=== PATIENT | female | born 1990 | race Two or more races ===

== ENCOUNTER 2017-01-18 18:01 | Inpatient (IN) | payer OTHER, MEDICAID ==
[~2017-01-18] VITALS: Ht 165.1 cm; Wt 82.2 kg
[2017-01-18] MEDS ORDERED: ACTIVATED CHARCOAL 50 GM/240 ML SOL ONE (18:16)
[2017-01-18] MEDS ORDERED: ACTIVATED CHARCOAL 50 GM/240 ML SOL PO ONE (18:30)
[2017-01-18] MEDS ORDERED: SODIUM CHLORIDE 0.9% 1,000 ML IV ONE (19:00)
[2017-01-18 19:39] LABS: Albumin 3.7 g/dL (3.4-5.0); Anion Gap 11 (5-15); Aspartate Aminotransferase 17 U/L (15-37); BUN/Creatinine Ratio 9.2; Blood Urea Nitrogen 6 mg/dL (7-18); Carbon Dioxide 21 mmol/L (21-32); Chloride 107 mmol/L (98-107); GFR African American 141 mL/min; GFR Non-African American 116 mL/min; Glucose 102 mg/dL (74-106); Potassium 3.6 mmol/L (3.5-5.1); Salicylate < 1.7 mg/dL (2.8-20.0); Sodium 139 mmol/L (136-145)
[2017-01-18 19:40] LABS: Basophils # (auto) 0 uL; Basophils % (auto) 0.5 % (0.0-2.0); Eosinophils # (auto) 0.1 uL; Eosinophils % (auto) 0.9 % (0.0-7.0); Hematocrit 39.9 % (36.0-46.0); Hemoglobin 13.7 g/dL (12.2-16.2); Lymphocytes # (auto) 1.7 uL; Lymphocytes % (auto) 18.6 % (10.0-50.0); Mean Corpuscular Hemoglobin 30.5 pg (28.0-32.0); Mean Corpuscular Hgb Conc. 34.4 g/dL (32.0-36.0); Mean Corpuscular Volume 88.6 fL (80.0-100.0); Mean Platelet Volume 9.4 fL (6.9-10.8); Monocytes # (auto) 0.5 uL; Monocytes % (auto) 5.5 % (0.0-12.0); Neutrophils # (auto) 6.8 uL; Neutrophils % (auto) 74.5 % (37.0-80.0); Platelet Count (auto) 166 10^3/uL (140-450); Red Cell Distribution Width 12.4 % (11.8-14.3); White Blood Cell 9.2 10^3/uL (4.4-10.8)
[2017-01-18 19:41] LABS: Alkaline Phosphatase 49 U/L (45-117); Bilirubin, Total 0.3 mg/dL (0.2-1.0); Total Protein 7.2 g/dL (6.4-8.2)
[2017-01-18] MEDS ORDERED: ONDANSETRON HCL 4 MG/2 ML VIAL ONE (20:21)
[2017-01-18] MEDS ORDERED: ACETYLCYSTEINE 200MG/ML IV SOLN 30ML IV ONE ×2 (20:29→21:09)
[2017-01-18] MEDS ORDERED: ONDANSETRON HCL 4 MG/2 ML VIAL IV ONE (20:30)
[2017-01-18 20:35] LABS: Urine Bilirubin Negative (Negative); Urine Blood Negative /uL (Negative); Urine Color Colorless (Yellow); Urine Glucose Normal (Normal); Urine Ketone Negative (Negative); Urine Nitrite Negative (Negative); Urine RBC <1 /hpf (0 - 4); Urine Squamous Epithelial Cell FEW /hpf (<5); Urine Urobilinogen Normal (Negative)
[2017-01-18] MEDS ORDERED: ACETYLCYSTEINE 200MG/ML IV SOL 10,900 MG in D5W 5% 250 ML IV ONE (20:45)
[2017-01-18] MEDS ORDERED: ACETYLCYSTEINE 200MG/ML IV SOL 7,300 MG in D5W 5% 1,000 ML IV ONE (20:45)
[2017-01-18] MEDS ORDERED: ACETYLCYSTEINE IV ONE (21:15)
[2017-01-18] MEDS ORDERED: D5W 5% IV ONE (21:15)
[2017-01-18] MEDS ORDERED: ACETYLCYSTEINE 200MG/ML IV SOL 3,600 MG in D5W 5% 500 ML IV ONE (22:00)
[2017-01-18] MEDS ORDERED: PROMETHAZINE HCL 25 MG/ML 1ML ONE (22:59)
[2017-01-18] MEDS ORDERED: PROMETHAZINE HCL 25 MG/ML 1ML IV ONE (23:15)
[2017-01-19] MEDS ORDERED: D5W 5% IV SCH (01:15)
[2017-01-19] MEDS ORDERED: ACETYLCYSTEINE IV SCH (01:15)
[2017-01-19] MEDS: ACETYLCYSTEINE 200MG/ML IV SOL 7,300 MG in D5W 5% 1,000 ML IV SCH ×2 (02:00→18:00)
[2017-01-19] MEDS ORDERED: ONDANSETRON HCL 4 MG/2 ML VIAL IV ONE (03:30)
[2017-01-19] MEDS ORDERED: ONDANSETRON HCL 4 MG/2 ML VIAL IV PRN (03:45)
[2017-01-19] MEDS ORDERED: NITROGLYCERIN 0.4 MG SL TAB SL PRN (03:45)
[2017-01-19] MEDS ORDERED: MORPHINE SULF INJ 2 MG/ML SYRINGE 1ML IV PRN (03:45)
[2017-01-19] MEDS ORDERED: PANTOPRAZOLE 40 MG/10 ML VIAL IV ONE (03:45)
[2017-01-19] MEDS: SODIUM CHLORIDE 0.9% 1,000 ML IV SCH ×2 (03:54→18:38)
[2017-01-19 04:21] LABS: INR 1.11 (0.9-1.15); Prothrombin Time 12.1 sec (9.37-12.3)
[2017-01-19 04:26] LABS: Albumin 3.4 g/dL (3.4-5.0); Bilirubin, Direct 0.1 mg/dL (0-0.2); Bilirubin, Total 0.5 mg/dL (0.2-1.0)
[2017-01-19 09:00] VITALS: BP 129/76
[2017-01-19 09:34] VITALS: BP 129/76
[2017-01-19] MEDS ORDERED: FLUO1TAB14 PO (09:59)
[2017-01-19] MEDS ORDERED: PANTOPRAZOLE 40 MG/10 ML VIAL IV SCH (10:00)
[2017-01-19 13:00] VITALS: BP 100/52
[2017-01-19 16:44] VITALS: BP 100/52
[2017-01-19 17:00] VITALS: BP 108/60
[2017-01-19 20:00] VITALS: BP 108/52
== END 2017-01-19 20:50 | disposition short-term general hospital (02) | DRG 918 ==
LOC: ER 18:16 → TELE 18:17 → TELE-CENTR 01-19 09:03
PROVIDERS: ADMIT Internal Medicine; ATTEND Internal Medicine
DX: T39.1X2A Poisoning by 4-Aminophenol derivatives, intentional self-harm, initial encounter (principal); F32.9 Major depressive disorder, single episode, unspecified; T43.222A Poisoning by selective serotonin reuptake inhibitors, intentional self-harm, initial encounter; E86.0 Dehydration; Y92.89 Other specified places as the place of occurrence of the external cause
CPT/HCPCS: 36415; 51702; 80053; 80076; 80307; 80320; 80329; 81001; 81025; 85025; 85610; 85730; 96361; 96365; C9113; J2405; J7060